=== PATIENT | male | born 1990 | race Caucasian/White ===

== ENCOUNTER 2016-09-14 21:57 | Emergency (ER) | payer BC ==
[2016-09-14] MEDS ORDERED: TYLENOL 325 MG PO STA (22:32)
[2016-09-14] MEDS ORDERED: Sodium Chloride 0.9% 1000 ML 1,000 ML IV STA (22:32)
[2016-09-14] MEDS ORDERED: Sodium Chloride 0.9% 1000 ML 1,000 ML ONE (22:36)
[2016-09-14] MEDS ORDERED: TYLENOL 325 MG ONE (22:36)
--- NOTE | 2016-09-14 22:36 | ERPHSYRPT ---
- History of Present Illness Time Seen by Provider: 09/14/16 22:33 Source: patient Exam Limitations: no limitations Patient Subjective Stated Complaint: Pt states that for the last 4 days he has had a pain in the center of his back over his spine. It is very tender to touch. All of july he was very fatigued and had a cough and a lot of joint pain. Yesterday he was driving and started having blurred vision and then proceeded to lose his peripheral vision - this last approx 30 minutes. He has felt bad all day and started running a fever this evening. Pt has been living in [facility] for the last 2 years Triage Nursing Assessment: Pt alert and oriented x3. skin pink warm and dry. afebrile. no bruising or swelling noted to back. area over spine tender to touch Physician History: Pt states that for the last 4 days he has had a pain in the center of his back over his spine. It is very tender to touch. All of july he was very fatigued and had a cough and a lot of joint pain. Yesterday he was driving and started having blurred vision and then proceeded to lose his peripheral vision - this last approx 30 minutes. He has felt bad all day and started running a fever this evening. Pt has been living in [facility] for the last 2 years studying for medicine Timing/Duration: day(s) Fever Severity: moderate Fever Therapy [employer]: none Associated Symptoms: chest pain, cough, weakness, No confusion, No stiff neck International travel in last 2 weeks: Yes Allergies/Adverse Reactions: No Known Drug Allergies Allergy (Unverified 11/14/11 13:29) Home Medications: Omeprazole 40 mg PO DAILY 09/14/16 [History] Topiramate [Topiramate ER] 50 mg PO DAILY 09/14/16 [History] Hx Tetanus, Diphtheria Vaccination/Date Given: Yes Hx Influenza Vaccination/Date Given: Yes Immunizations Up to Date: Yes - Review of Systems Constitutional: Fever, No Chills Eyes: No Symptoms Ears, Nose, & Throat: No Symptoms Respiratory: Cough, No Dyspnea Cardiac: No Chest Pain, No Edema, No Syncope Abdominal/Gastrointestinal: No Abdominal Pain, No Nausea, No Vomiting, No Diarrhea Genitourinary Symptoms: No Dysuria Musculoskeletal: No Back Pain, No Neck Pain Skin: No Rash Neurological: No Dizziness, No Focal Weakness, No Sensory Changes Psychological: No Symptoms Endocrine: No Symptoms All Other Systems: Reviewed and Negative - Past Medical History Pertinent Past Medical History: Yes Neurological History: Migraines ENT History: No Pertinent History Cardiac History: No Pertinent History Respiratory History: Asthma Endocrine Medical History: No Pertinent History Musculoskeletal History: No Pertinent History GI Medical History: GERD History: No Pertinent History Psycho-Social History: Depression Male Reproductive Disorders: No Pertinent History - Past Surgical History Past Surgical History: Yes Neuro Surgical History: No Pertinent History Cardiac: No Pertinent History Respiratory: No Pertinent History Gastrointestinal: Appendectomy, Cholecystectomy Genitourinary: No Pertinent History Musculoskeletal: No Pertinent History Male Surgical History: No Pertinent History Other Surgical History: T&A,Nasal surgery - Social History Smoking Status: Never smoker Exposure to second hand smoke: No Drug Use: none - Nursing Vital Signs Nursing Vital Signs: Initial Vital Signs Temperature 100.4 F Temperature Source Oral Pulse Rate 111 Respiratory Rate 16 Blood Pressure [] 120/66 Pain Intensity 5 - Physical Exam General Appearance: no apparent distress, alert Eye Exam: PERRL/EOMI ENT Exam: normal ENT inspection, No pharyngeal erythema, No tonsillar exudate Neck Exam: supple, full range of motion, No meningismus Respiratory Exam: normal breath sounds, lungs clear, no respiratory distress Cardiovascular/Chest Exam: normal heart sounds, regular rate/rhythm, No murmur, No edema Gastrointestinal/Abdominal Exam: soft, non tender, no distention Extremity Exam: non-tender, normal range of motion, normal inspection, normal capillary refill Neurologic Exam: alert, oriented x 3, cooperative, clock and watch hands dipper II-XII nml as tested, normal mood/affect, sensation nml, No motor deficits Skin Exam: normal color, warm, dry, No rash SpO2: 99 Oxygen Delivery: Room Air - Course Nursing assessment & vital signs reviewed: Yes - Radiology Exams Chest X-ray Interpretation: Reviewed by me (no acute changes, no infiltrate) Ordered Tests: Active Orders 24 hr Category Date Time Status IV Insertion STAT Care 09/14/16 22:48 Active CHEST 1 VIEW (PORTABLE) Stat Exams 09/14/16 22:32 Taken CBC W DIFF Stat Lab 09/14/16 22:52 Completed CMP Stat Lab 09/14/16 22:52 Completed CULTURE, THROAT Stat Lab 09/14/16 22:42 Received Lactic Acid Urgent Lab 09/14/16 22:55 Completed [place] Screen Stat Lab 09/14/16 22:52 Completed STREP SCREEN-BETA A Stat Lab 09/14/16 22:42 Completed UA Stat Lab 09/14/16 22:32 Completed Medication Summary Generic Name Dose Route Start Last Admin Trade Name Theresa PRN Reason Stop Dose Admin Amoxicillin 500 mg 09/15/16 00:04 Amoxil 500 Mg PO 09/15/16 00:05 STAT ONE Discontinued Medications Generic Name Dose Route Start Last Admin Trade Name Freq PRN Reason Stop Dose Admin Acetaminophen 975 mg 09/14/16 22:32 09/14/16 22:38 Tylenol 325 Mg PO 09/14/16 22:33 975 mg STAT STA Administration Acetaminophen Confirm 09/14/16 22:36 Tylenol 325 Mg Administered 09/14/16 22:37 Dose 975 mg .ROUTE .STK-MED ONE Sodium Chloride 1,000 mls @ 999 mls/hr 09/14/16 22:32 09/14/16 22:38 Sodium Chloride 0.9% 1000 Ml IV 09/14/16 23:32 999 mls/hr .Q1H1M STA Administration Sodium Chloride Confirm 09/14/16 22:36 Sodium Chloride 0.9% 1000 Ml Administered 09/14/16 22:37 Dose 1,000 mls @ ud .ROUTE .STK-MED ONE Lab/Rad Data: Laboratory Result Diagrams 09/14/16 22:52 09/14/16 22:52 Laboratory Results 09/14/16 09/14/16 09/14/16 Range/Units 22:55 22:52 22:52 WBC (4.0-10.5) K/mm3 RBC (4.1-5.6) M/mm3 Hgb (12.5-18.0) gm/dl Hct (42-50) % MCV (78-100) fl MCH (26-32) pg MCHC (32-36) g/dl RDW (11.5-14.0) % Plt Count (150-450) K/mm3 MPV (6-9.5) fl Gran % (36.0-66.0) % Lymphocytes % (24.0-44.0) % Monocytes % (0.0-12.0) % Eosinophils % (0.00-5.0) % Basophils % (0.0-0.4) % Basophils # (0-0.4) Sodium 140 (136-145) mEq/L Potassium 3.6 (3.5-5.1) mEq/L Chloride 105 (98-107) mEq/L Carbon Dioxide 26.0 (21-32) mEq/L Anion Gap 12.7 (5-15) MEQ/L BUN 13 (9-20) mg/dL Creatinine 1.16 (0.55-1.30) mg/dl Estimated GFR > 60 ML/MIN Glucose 128 H (70-110) MG/DL Lactic Acid 1.2 (0.4-2.0) Calcium 9.0 (8.5-10.1) mg/dL Total Bilirubin 0.4 (0.2-1.0) mg/dL AST 15 (15-37) U/L ALT 17 (12-78) U/L Alkaline Phosphatase 93 (46-116) U/L Serum Total Protein 7.4 (6.4-8.2) gm/dL Albumin 3.5 (3.4-5.0) g/dL Ur Collection Type Urine Color (YELLOW) Urine Appearance (CLEAR) Urine pH (5-6) Ur Specific [place] (1.005-1.025) Urine Protein (Negative) Urine Glucose (UA) (NEGATIVE) mg/dL Urine Ketones (NEGATIVE) Urine Nitrite (NEGATIVE) Urine Bilirubin (NEGATIVE) Urine Urobilinogen (0-1) mg/dL Urine WBC (Auto) (NEGATIVE) Urine RBC (Auto) (0-5) Ld/ul Monoscreen NEGATIVE (Negative) Influenza Type A Ag (NEGATIVE) Influenza Type B Ag (NEGATIVE) RSV (PCR) (Negative) Streptococcus Screen (Negative) Specimen Received 09/14/16 09/14/16 09/14/16 Range/Units 22:52 22:42 22:42 WBC 10.7 H (4.0-10.5) K/mm3 RBC 4.81 (4.1-5.6) M/mm3 Hgb 13.6 (12.5-18.0) gm/dl Hct 39.8 L (42-50) % MCV 82.7 (78-100) fl MCH 28.3 (26-32) pg MCHC 34.2 (32-36) g/dl RDW 13.0 (11.5-14.0) % Plt Count 199 (150-450) K/mm3 MPV 11.0 H (6-9.5) fl Gran % 79.0 H (36.0-66.0) % Lymphocytes % 10.6 L (24.0-44.0) % Monocytes % 9.2 (0.0-12.0) % Eosinophils % 1.0 (0.00-5.0) % Basophils % 0.2 (0.0-0.4) % Basophils # 0.02 (0-0.4) Sodium (136-145) mEq/L Potassium (3.5-5.1) mEq/L Chloride (98-107) mEq/L Carbon Dioxide (21-32) mEq/L Anion Gap (5-15) MEQ/L BUN (9-20) mg/dL Creatinine (0.55-1.30) mg/dl Estimated GFR ML/MIN Glucose (70-110) MG/DL Lactic Acid (0.4-2.0) Calcium (8.5-10.1) mg/dL Total Bilirubin (0.2-1.0) mg/dL AST (15-37) U/L ALT (12-78) U/L Alkaline Phosphatase (46-116) U/L Serum Total Protein (6.4-8.2) gm/dL Albumin (3.4-5.0) g/dL Ur Collection Type Urine Color (YELLOW) Urine Appearance (CLEAR) Urine pH (5-6) Ur Specific [place] (1.005-1.025) Urine Protein (Negative) Urine Glucose (UA) (NEGATIVE) mg/dL Urine Ketones (NEGATIVE) Urine Nitrite (NEGATIVE) Urine Bilirubin (NEGATIVE) Urine Urobilinogen (0-1) mg/dL Urine WBC (Auto) (NEGATIVE) Urine RBC (Auto) (0-5) Ld/ul Monoscreen (Negative) Influenza Type A Ag NEGATIVE (NEGATIVE) Influenza Type B Ag NEGATIVE (NEGATIVE) RSV (PCR) NEGATIVE (Negative) Streptococcus Screen NEGATIVE (Negative) Specimen Received 09/14/16 Range/Units 22:32 WBC (4.0-10.5) K/mm3 RBC (4.1-5.6) M/mm3 Hgb (12.5-18.0) gm/dl Hct (42-50) % MCV (78-100) fl MCH (26-32) pg MCHC (32-36) g/dl RDW (11.5-14.0) % Plt Count (150-450) K/mm3 MPV (6-9.5) fl Gran % (36.0-66.0) % Lymphocytes % (24.0-44.0) % Monocytes % (0.0-12.0) % Eosinophils % (0.00-5.0) % Basophils % (0.0-0.4) % Basophils # (0-0.4) Sodium (136-145) mEq/L Potassium (3.5-5.1) mEq/L Chloride (98-107) mEq/L Carbon Dioxide (21-32) mEq/L Anion Gap (5-15) MEQ/L BUN (9-20) mg/dL Creatinine (0.55-1.30) mg/dl Estimated GFR ML/MIN Glucose (70-110) MG/DL Lactic Acid (0.4-2.0) Calcium (8.5-10.1) mg/dL Total Bilirubin (0.2-1.0) mg/dL AST (15-37) U/L ALT (12-78) U/L Alkaline Phosphatase (46-116) U/L Serum Total Protein (6.4-8.2) gm/dL Albumin (3.4-5.0) g/dL Ur Collection Type CLEAN CATCH Urine Color YELLOW (YELLOW) Urine Appearance CLEAR (CLEAR) Urine pH 7.5 (5-6) Ur Specific [place] 1.020 (1.005-1.025) Urine Protein NEGATIVE (Negative) Urine Glucose (UA) NEGATIVE (NEGATIVE) mg/dL Urine Ketones NEGATIVE (NEGATIVE) Urine Nitrite NEGATIVE (NEGATIVE) Urine Bilirubin NEGATIVE (NEGATIVE) Urine Urobilinogen 2 (0-1) mg/dL Urine WBC (Auto) NEGATIVE (NEGATIVE) Urine RBC (Auto) NEGATIVE (0-5) Ld/ul Monoscreen (Negative) Influenza Type A Ag (NEGATIVE) Influenza Type B Ag (NEGATIVE) RSV (PCR) (Negative) Streptococcus Screen (Negative) Specimen Received [id number] - Progress Progress: unchanged Discussed with : Jim Counseled pt/family regarding: lab results, diagnosis, need for follow-up, rad results - Departure Time of Disposition: 00:05 Departure Disposition: Home Clinical Impression: Viral fever Fever Qualifiers: Fever type: unspecified Qualified Code(s): R50.9 - Fever, unspecified Condition: Stable Critical Care Time: No Referrals: LETITIA GALVEZ [Family Provider] - Followup in 3 days w/ PCP Instructions: Fever (Symptom) -- Adult, Viral Syndrome Additional Instructions: Please follow the instructions given to you. Please take your medication as prescribed if given. If symptoms recur or get worse, come back to the emergency room if you cannot reach your primary care physician, or call your primary care physician for an appointment. Again if your symptoms get worse, come back to the emergency room. Thanks for visiting emergency room, and let us take care of you. Prescriptions: Amoxicillin 500 mg PO TID #30 tablet
[2016-09-14 22:59] LABS: BASOPHIL % 0.2 % (0.0-0.4); Lymphocytes % 10.6 % (24.0-44.0); Mean Cell Volume 82.7 fl (78-100); Mean Corpuscular Hemoglobin 28.3 pg (26-32); Monocytes % 9.2 % (0.0-12.0); Platelet Count 199 K/mm3 (150-450); Red Blood Count 4.81 M/mm3 (4.1-5.6); White Blood Count 10.7 K/mm3 (4.0-10.5)
[2016-09-14 23:16] LABS: ALBUMIN 3.5 g/dL (3.4-5.0); ALKALINE PHOSPHATASE 93 U/L (46-116); ANION GAP 12.7 MEQ/L (5-15); BILIRUBIN,TOTAL 0.4 mg/dL (0.2-1.0); BLOOD UREA NITROGEN 13 mg/dL (9-20); CHLORIDE 105 mEq/L (98-107); Glucose 128 MG/DL (70-110); Potassium 3.6 mEq/L (3.5-5.1); SGOT/AST 15 U/L (15-37); SGPT/ALT 17 U/L (12-78); SODIUM 140 mEq/L (136-145); Total Protein 7.4 gm/dL (6.4-8.2)
[2016-09-14 23:23] LABS: COMPLETE URINE MICROSCOPIC? NO; Collection Type CLEAN CATCH; Ph 7.5 (5-6)
[2016-09-15] MEDS ORDERED: AMOXIL 500 MG PO ONE (00:04)
[2016-09-15 00:08] VITALS: O2SAT 99
[2016-09-15] MEDS ORDERED: AMOXIL 500 MG ONE (00:13)
[2016-09-15 00:22] VITALS: BP 110/55; PULSE 99
--- NOTE | 2016-09-15 07:37 | XRAY ---
Indication: Fever. Comparison: March 13, 2006. Portable chest again demonstrates normal heart, lungs, and bony thorax.
== END 2016-09-15 00:22 | disposition home or self-care (01) ==
LOC: ED 21:57
DX: R50.9 Fever, unspecified (principal); R05 Cough; R53.1 Weakness
CPT/HCPCS: 36000; 36415; 71010; 80053; 81002; 83605; 85025; 86308; 87070; 87430; 87631; 96360; 99284; A9270-GY